=== PATIENT | female | born 2005 | race Hispanic/Latino ===

== ENCOUNTER 2025-08-14 22:20 | Emergency (ER) | payer MEDICAID ==
[~2025-08-14] VITALS: Ht 160 cm; Wt 102.5 kg
--- NOTE | 2025-08-14 22:25 | NUR ---
UA CUP PROVIDED
--- NOTE | 2025-08-14 22:30 | EKG ---
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
[2025-08-14 22:51] LABS: APPEARANCE,URINE CLEAR (CLEAR); GLUCOSE, URINE (UA) NEGATIVE (NEGATIVE); LEUKOCYTE ESTERASE ,URINE NEGATIVE Leu/uL (NEGATIVE); NITRATE,URINE NEGATIVE (NEGATIVE); OCCULT BLOOD,URINE SMALL (NEGATIVE); SQUAMOUS EPITHELIAL CELL,UR RARE /HPF (0-2)
--- NOTE | 2025-08-14 23:06 | NUR ---
PT IN ULTRA SOUND AT THIS TIME
--- NOTE | 2025-08-14 23:26 | NUR ---
PT CARE ASSUMED. PT NOT IN ROOM WITH ULTRASOUND.
[2025-08-14 23:48] LABS: IMMATURE GRANULOCYTE ABSOLUTE 0.04 K/uL (0-1); NUCLEATED RED BLOOD CELLS 0.0 % (0.0-0.19); PLATELET COUNT (AUTO) 236 K/uL (130-400); RED BLOOD CELL COUNT(AUTO) 4.16 MIL/uL (4.00-5.50); RED CELL DISTRIBUTION WIDTH 13.9 % (11.0-15.5); WHITE BLOOD COUNT (AUTO) 9.0 K/uL (4.8-10.8)
[2025-08-14] MEDS: 0.9%NACL 1000ML 1,000 ML IV STA (23:48)
[2025-08-15 00:18] LABS: CREATININE 0.6 mg/dL (0.5-1.0); GLOMERULAR FILTR. RATE CALC 132.0 mL/min (>90); GLUCOSE,RANDOM 125.0 mg/dL (70-105); SODIUM SERUM 140.0 mmol/L (136-145); UREA NITROGEN, BLOOD 7.0 mg/dL (7-18)
[2025-08-15 00:44] LABS: CREATINE KINASE, TOTAL 58.0 U/L (21-232); HCG,QUANTITATIVE 2837.0 mIU/mL (0-5)
--- NOTE | 2025-08-15 00:46 | ERN ---
ED Note History of Present Illness Stated Complaint: HIP PAIN, CHEST PAIN Chief Complaint: OB<20 weeks gest. Time Seen by MD: 22:26 Time Seen by Midlevel: 22:28 Dictation: 19-year-old female with no past medical history coming in with complaints for w aist" pain, bilateral hip pain, in states intermittent chest pain. Patient states earlier today she saw her OBGYN and was told if she has been pleased began like babies to return to the emergency room. Patient's LMP is 06/19/2025, A0. Patient states her last she has a history of preeclampsia. Allergies: Coded Allergies: No Known Allergies (Unverified Allergy, Unknown, 08/14/25) Past Medical History Past Medical History: No Pertinent History Surgical History: None LMP: Jun 19, 2025 : 2 Para: 1 Review of System Dictation Constitutional: Negative for fever,chills, and weight loss Eyes: Negative for injury, pain,redness, and discharge ENT: Negative for injury,pain or swelling Cardiovascular: Negative for chest pain, palpitations, and edema Respiratory: Negative for shortness of breath, cough, and wheezing, Abdomen/GI: Negative for abdominal pain, nausea, vomiting, diarrhea, and constipation Back: Negative for injury and pain : Negative for injury, bleeding and discharge MS/Extremity: Negative for injury and deformity Skin: Negative for rash, and discoloration Neuro: Negative for headache, weakness, numbness, tingling, and seizure Psych: Negative for suicide ideation, homicidal ideation, and hallucinations Review of Systems: was completed Initial Vital Sign VS Vital Signs Date Time Temp Pulse Resp B/P (MAP) Pulse Ox O2 Delivery O2 Flow Rate FiO2 08/14/25 22:21 98.8 108 20 151/88 100 Room Air 08/15/25 00:23 0 21 Physical Exam Dictation General: awake, alert, NAD Head/Face: Normocephalic, atraumatic Eyes: PERRL, EOMI, vision at baseline ENT: oral cavity clear, TMs clear, no signs of infection Neck: Trachea midline, supple, no nuchal rigidity Cardiovascular: RRR, normal S1/S2, No MRGs, no JVD Respiratory: CTAB, no respiratory distress, No rales or wheezes Abdomen: Soft, non-tender, non-distended, normal bowel sounds, no guarding or rebound. Skin: Warm, dry, normal turgor, no rash MS/Extremity: Pulses equal, no cyanosis, neurovascular intact, FROM Neuro: COAx4, GCS 15, strength 5/5, CN 2-12 intact, normal cerebellar exam, normal gait, Psych: Normal behavior, mood, and affect normal Results (Laboratory/Radiology) Laboratory/Radiology Laboratory Tests Test 08/14/25 22:30 08/14/25 23:40 Urine Color COLORLESS (YELLOW) Urine Appearance CLEAR (CLEAR) Urine pH 6.5 (5.0-8.0) Urine Specific [place] 1.006 (1.001-1.031) Urine Protein NEGATIVE mg/dL (NEGATIVE) Urine Glucose (UA) NEGATIVE mg/dL (NEGATIVE) Urine Ketones NEGATIVE mg/dL (NEGATIVE) Urine Occult Blood SMALL (NEGATIVE) H Urine Nitrate NEGATIVE (NEGATIVE) Urine Bilirubin NEGATIVE mg/dL (NEGATIVE) Urine Urobilinogen 0.2 mg/dL (0.2-1.0) Urine Leukocyte Esterase NEGATIVE [place]/uL Urine RBC 0-1 /HPF (0-1) Urine WBC None /HPF (0-1) Urine Squamous Epithelial Cells RARE /HPF (0-2) Urine Bacteria None /HPF (None Seen) White Blood Count 9.0 K/uL (4.8-10.8) Red Blood Count 4.16 MIL/uL (4.00-5.50) Hemoglobin 11.5 g/dL (12.0-16.0) L Hematocrit 35.7 % (36-48) L Mean Corpuscular Volume 85.8 fL (80-100) Mean Corpuscular Hemoglobin 27.6 pg (27.0-33.0) Mean Corpuscular Hemoglobin Concent 32.2 g/dL (32.0-36.0) Red Cell Distribution Width 13.9 % (11.0-15.5) Platelet Count 236 K/uL (130-400) Mean Platelet Volume 9.6 fL (7.5-10.5) Immature Granulocyte % (Auto) 0.4 % (0-1) Neutrophils (%) (Auto) 71.4 % (40.0-77.0) Lymphocytes (%) (Auto) 21.3 % (21.0-51.0) Monocytes (%) (Auto) 5.6 % (3.0-13.0) Eosinophils (%) (Auto) 1.1 % (0.0-8.0) Basophils (%) (Auto) 0.2 % (0.0-5.0) Neutrophils # (Auto) 6.4 K/uL (1.8-7.7) Lymphocytes # (Auto) 1.9 K/uL (1.0-4.8) Monocytes # (Auto) 0.5 K/uL (0.1-1.0) Eosinophils # (Auto) 0.10 K/uL (0.00-0.70) Basophils # (Auto) 0.02 K/uL (0.00-0.20) Absolute Immature Granulocyte (auto 0.04 K/uL (0-1) Nucleated Red Blood Cells 0.0 % (0.0-0.19) Sodium Level 140 mmol/L (136-145) Potassium Level 3.5 mmol/L (3.5-5.1) Chloride Level 104 mmol/L (101-111) Carbon Dioxide Level 28 mmol/L (21-32) Blood Urea Nitrogen 7 mg/dL (7-18) Creatinine 0.6 mg/dL (0.5-1.0) Glomerular Filtration Rate Calc 132 mL/min (>90) Random Glucose 125 mg/dL (70-105) H Total Calcium 8.8 mg/dL (8.5-10.1) Total Creatine Kinase 58 U/L (21-232) Troponin I High Sensitivity 4.0 ng/L (4-50) Human Chorionic Gonadotropin, Quant 2837 mIU/mL (0-5) H Labs Reviewed?: Yes ED Course ED Course Orders Procedure Category Date Status Time 12 Lead Ekg Tracing- EKG 08/14/25 Complete Technical 22:22 Cardiac Panel LAB 08/14/25 Complete 22:22 Hcg,Quantitative LAB 08/14/25 Complete 22:22 Us Ob <14 Weeks US 08/14/25 Taken 22:41 0.9%Nacl 1000ml (Ns PHA 08/14/25 Complete 1000ml) 22:41 Acetaminophen 325 Tab PHA 08/14/25 Complete (Tylenol 325mg Tab 23:00 Urinalysis LAB 08/14/25 Complete W/Microscopic 22:30 Cbc With Differential LAB 08/14/25 Complete 23:11 Basic Metabolic Panel LAB 08/14/25 Complete 22:22 Current Medications Medications (Trade) Dose Ordered Sig/Leonie Route PRN Reason Start Time Stop Time Status Last Admin Dose Admin Acetaminophen (TYLenol 325MG TAB) 650 mg ONCE ONCE PO 08/14/25 23:00 08/14/25 23:01 DC Sodium Chloride 1,000 ml @ 1,000 mls/hr Q1H STAT IV 08/14/25 22:41 08/14/25 23:40 DC 08/14/25 23:48 Vital Signs Date Time Temp Pulse Resp B/P (MAP) Pulse Ox O2 Delivery O2 Flow Rate FiO2 08/15/25 00:23 98.8 92 22 125/60 100 Room Air* 0 21 08/14/25 22:21 98.8 108 20 151/88 100 Room Air Medical Decision Making MDM MDM: 19-year-old female with no past medical history coming in with complaints for waist" pain, bilateral hip pain, in states intermittent chest pain. Patient states earlier today she saw her OBGYN and was told if she has been pleased began like babies to return to the emergency room. Patient's LMP is 06/19/2025, A0. Patient states her last she has a history of preeclampsia. Preliminary ultrasound report shows a sac like structure seen in the endo, estimated gestational age of five weeks four days. Positive flow to bilateral ovaries.CBC shows no leukocytosis, no anemia, no thrombocytopenia. Posterior unremarkable. Normal kidney function. Troponin negative. ED quantitative is 2800. UA shows no evidence of urinary tract infection. Received 1L of fluids, refused Tylenol for pain states she is concerned about the claims of autism they are being made on the news. Blood pressure is in the 120 systolic. Patient's symptoms have improved. Patient also told primary nurse that she has been stress recently as she has a her other child in [place]. With the patient she needs to return to OBGYN, return to the hospital symptoms worsen. Patient verbalized understanding, answered all questions. Differential diagnosis: UTI, dehydration, ectopic, early Rationale: Tests considered and ordered secondary to shared decision making include: Previous outside records reviewed: Old ER visits. Risk of complication and/or morbidity or mortality of patient management: None Medications-Per medication reconciliation Need for hospitalization: Patient does not meet criteria for hospitalization. Need for emergency major/minor surgery: No There are no social concerns with this patient. Prescription drug management Prescriptions will include symptomatic care Patient's prior external medical records from other ER visits were reviewed by me as indicated. Prior testing and results from previous visits were reviewed. Prior tests were taken into account with medical decision making and resource utilization, independent historian/historians were used to obtain complete medical history. I independently interpreted the test that were performed, results were reviewed by me and considered findings on radiology if ordered. Medical management and examination interpretation discussions were had by me with other qualified healthcare professionals as indicated for the patient's care. DX & DISP Disposition: Discharge Departure Impression: Primary Impression: Early stage of Condition: Stable Additional Instructions: Permanent for pain. Follow up with your OBGYN. Return to the hospital for any emergency. Referrals: NONE (PCP) Time of Disposition: 00:49 I have reviewed the case, and I agree with, Diagnosis and Plan FARHAD PICKETT CNP Aug 15, 2025 00:46
--- NOTE | 2025-08-15 01:03 | HMCIMG ---
EXAM: US Obstetrical, Complete <14 weeks CLINICAL HISTORY: Rule out ectopic gestation. TECHNIQUE: Transabdominal and transvaginal imaging of the maternal pelvis and a < 14-week gestation with image documentation. COMPARISON: None provided. FINDINGS: GESTATION: There is a single intrauterine saclike structure measuring 0.65 cm corresponding to 5 weeks 4 days. Yolk sac and pole not seen. UTERUS: Unremarkable. No myometrial mass. The uterus measures 7.2 x 5.3 x 6.2 cm. CERVIX: Closed. Unremarkable. OVARIES: Unremarkable. No mass. The right ovary measures 3.6 x 2.0 x 2.0 cm. The left ovary measures 3.0 x 1.8 x 1.9 cm. Positive Doppler flow in both ovaries. FREE FLUID: No free fluid. IMPRESSION: Single intrauterine sac-like structure measuring 0.65 cm corresponding to 5 weeks 4 days. No pole or yolk sac is evident at this time. In conjunction with quantitative beta-hCG, findings may reflect a normal early , incomplete miscarriage, or an ectopic that is not seen. Recommend serial quantitative beta-hCG and short interval follow-up. /Idania
[2025-08-15 01:07] VITALS: BP 130/75; PULSE 92; RESP 17; TEMP 98.8; O2SAT 100
== END 2025-08-15 01:09 | disposition home or self-care (01) ==
LOC: EDH 22:20
DX: O26.892 Other specified pregnancy related conditions, second trimester (principal); M25.551 Pain in right hip; M25.552 Pain in left hip; R07.9 Chest pain, unspecified; Z3A.01 Less than 8 weeks gestation of pregnancy
CPT/HCPCS: 99284; 76801; 82550; 84484; 80048; 84702; 85025; 81001; 36415; 93005; J7030